=== PATIENT | female | born 1980 | race Caucasian/White ===

== ENCOUNTER → 2024-05-07 15:24 | Outpatient (REF) | payer OTHER, SELFPAY | LOC: WDC 15:24 | PROVIDERS: ATTENDING PHYSICIAN Nurse Practitioner | DX: Z12.31 Encounter for screening mammogram for malignant neoplasm of breast (principal) | CPT/HCPCS: 77063; 77067 ==

== ENCOUNTER 2025-01-26 06:35 | Emergency (ER) | payer OTHER, SELFPAY ==
[2025-01-26 06:38] VITALS: BP 104/66
[2025-01-26 07:19] LABS: Glucose - Point of Care 104 mg/dl (70-99)
--- NOTE | 2025-01-26 07:24 | ED.GENMED ---
History of Present Illness
General
Chief Complaint: Fainting/Passed Out
Time Seen by Provider: 01/26/25 07:02
History of Present Illness
History of Present Illness:
TIME OF INITIAL ENCOUNTER: 7:30 AM
HPI: The patient was accompanying her mother with a rather significant nosebleed. While in her mother's room in the Emergency Department, she felt that she was going to pass out and was lowered down to the ground by a nurse. There is no injury.
She was initially pale and diaphoretic. She has been having some headaches recently but this is common for her when she is midcycle for her periods. She never had any chest pain. She has had some intermittent fluttering in her chest recently and
her primary care doctor was considering a Holter monitor.
EXAM:
GENERAL: Well appearing in no distress
HEENT: Moist oral mucosa
CARDIOVASCULAR: No murmurs, normal heart rate, regular rhythm, No chest wall tenderness
PULMONARY: No respiratory distress, breath sounds are clear and equal
ABDOMEN: Soft with no peritoneal signs, no tenderness
NEUROLOGIC: Excellent strength all extremities, no coordination deficits
PSYCHIATRIC: Appropriate mental status, normal insight and judgement
EXTREMITIES: Nontender, no edema, moves all extremities equally
SKIN: No rash, no lesions
NUMBER AND COMPLEXITY OF PROBLEMS ADDRESSED AT THE ENCOUNTER
� Chronic conditions affecting care: No significant past medical history
� Acute Exacerbation and/or Progression of Chronic Illness: This is an acute problem
� Differential Diagnosis includes: Vasovagal/situational syncope, no evidence for dysrhythmia, no sign of hypoglycemia, hypotension
AMOUNT AND/OR COMPLEXITY OF DATA TO BE REVIEWED AND ANALYZED
� I performed an independent evaluation of and my interpretation is:
EKG: Sinus 68, nonspecific ST abnormality, no old to compare
CT:
X-rays:
Laboratory Studies: Blood glucose 104
Other:
� Review of other/old records: I reviewed records, the patient had a colonoscopy in 2019
� Clinical information was obtained by an independent historian: I did speak to her mother as well
� Prescriptions/Medications Considered but not given:
� Further testing considered but not performed:
RISK OF COMPLICATIONS AND/OR MORBIDITY OR MORTALITY OF PATIENT MANAGEMENT
� Social determinants of health affecting care: Lives at home
� Discussion with other providers:
� Escalation of care including admission/observation vs risk of discharge considered: Initial blood pressure slightly low at 104 systolic. Without any intervention repeat blood pressure 117. Blood sugar and EKG unremarkable.
She has a normal examination. On reassessment, the patient 'feels fine'
ANY OTHER UPDATES:
Phy Exam
Physical Exam
Physical Exam:
See HPI
Course
Orders/Labs/Results
Orders:
Orders
01/26/25 06:37
EKG [Electrocardiogram (*1)] Urgent
Reason for Study: Fatigue / Weakness
01/26/25 06:38
EKG- Treatment ONCE
01/26/25 07:11
Bedside Glucose- Treatment ONCE
Abnormal Lab Results
01/26/25
07:17
POC Glucose 104 H mg/dl
(70-99)
Vital Signs
Blood pressure: 117/70
Initial and Last Documented VS:
Initial Vital Signs
Temp Pulse Resp BP Pulse Ox
36.7 C 72 18 104/66 98
01/26/25 06:38 01/26/25 06:38 01/26/25 06:38 01/26/25 06:38 01/26/25 06:38
Last Documented Vital Signs
Temp Pulse Resp BP Pulse Ox
36.7 C 69 28 117/70 99
01/26/25 06:38 01/26/25 07:19 01/26/25 07:19 01/26/25 07:40 01/26/25 07:19
*Critical Care Note
Total Time (30-74mins, 75-104mins- exclusive of procedures): Not Applicable
ED Attending Note
-
Portions of this chart may have been created with voice recognition software.� Occasional wrong word or��sound alike� substitutions may have occurred due to the inherent limitations of voice recognition software.
Discharge Plan
Departure
Patient Disposition: Home (Routine Discharge)
Date of Disposition: 01/26/25
Time of Disposition: 07:39
Patient with high blood pressure during this ER visit?: Yes
Discharge Problem:
Syncope and collapse
Instructions: Syncope (Fainting) (DC)
Prescriptions:
No Action
prenat.vits,jody,kly-ycwp-gibdz [ Vitamin] 1 TAB tablet
1 tab PO
acetaminophen [Tylenol] 325 MG tablet
325 mg PO
Referrals:
Ritika Pastor CRNP [Family Provider] -
Activity Restrictions/Additional Instructions:
Follow-up your primary care doctor. EKG is normal. Blood sugar is normal. Your initial blood pressure was slightly low but on recheck it was normal.
Interventions
Interventions:
*Risk Screen - Suicide Last Done: 01/26/25 06:38
*Neglect/Abuse Screening Last Done: 01/26/25 07:04
*ED- Fall Risk Assessment Last Done: 01/26/25 07:04
*ED COVID-19 Vaccine History Last Done: 01/26/25 07:04
ED- Cardiac Assessment Last Done: 01/26/25 07:04
ED- Neurological Assessment Last Done: 01/26/25 07:04
Discharge Date and Time
Print Language: NEPALI
== END 2025-01-26 07:53 | disposition home or self-care (01) ==
LOC: EMR 06:35
PROVIDERS: EMERGENCY PHYSICIAN Emergency Medicine; FAMILY PHYSICIAN Nurse Practitioner
DX: R55 Syncope and collapse (principal)
CPT/HCPCS: 99284; 82962; 93005

== ENCOUNTER → 2025-05-08 09:32 | Outpatient (REF) | payer OTHER, SELFPAY | LOC: HWWDC 09:32 | DX: Z12.31 Encounter for screening mammogram for malignant neoplasm of breast (principal) | CPT/HCPCS: 77063; 77067 ==

== ENCOUNTER 2025-05-29 06:17 | Day surgery (SDC) | payer OTHER, SELFPAY | END 2025-05-29 13:22 | disposition home or self-care (01) | LOC: GI 06:17 | PROVIDERS: ATTENDING PHYSICIAN Internal Medicine Gastroenterology | DX: Z12.11 Encounter for screening for malignant neoplasm of colon (principal); K57.30 Diverticulosis of large intestine without perforation or abscess without bleeding; K64.8 Other hemorrhoids; K62.1 Rectal polyp; Z80.0 Family history of malignant neoplasm of digestive organs | CPT/HCPCS: 45380; 88305 ==